=== PATIENT | female | born 1975 | race Caucasian/White ===

== ENCOUNTER 2017-09-06 10:14 | Emergency (ER) | payer OTHER ==
[~2017-09-06] VITALS: Ht 149.9 cm; Wt 553.4 kg
== END 2017-09-06 12:34 | disposition home or self-care (01) ==
LOC: ER 10:14
DX: S13.4XXA Sprain of ligaments of cervical spine, initial encounter (principal); V49.9XXA Car occupant (driver) (passenger) injured in unspecified traffic accident, initial encounter; Y93.89 Activity, other specified; Y92.488 Other paved roadways as the place of occurrence of the external cause; Y99.8 Other external cause status